=== PATIENT | female | born 1995 | race African-American/Black ===

== ENCOUNTER 2017-07-04 14:26 | Emergency (ER) | payer SELFPAY ==
[~2017-07-04] VITALS: Ht 170.2 cm; Wt 57.0 kg
[2017-07-04 15:26] VITALS: BP 103/78
== END 2017-07-04 19:30 | disposition left against medical advice (07) ==
LOC: ER 15:17
DX: Z53.21 Procedure and treatment not carried out due to patient leaving prior to being seen by health care provider (principal)

== ENCOUNTER 2017-07-06 01:54 | Emergency (ER) | payer SELFPAY ==
[~2017-07-06] VITALS: Ht 170.2 cm; Wt 58.0 kg
[2017-07-06 02:20] VITALS: BP 108/75
[2017-07-06] MEDS ORDERED: CEFTRIAXONE SODIUM 250 MG/VIAL IM ONE (05:30)
[2017-07-06] MEDS ORDERED: AZITHROMYCIN 500 MG TABLET PO ONE ×2 (05:30→05:45)
[2017-07-06] MEDS ORDERED: LIDOCAINE HCL 1% 20ML VIAL (Pyxis) INJ MC ONE (05:45)
[2017-07-06 06:32] LABS: CLARITY URINE CLOUDY (CLEAR); COLOR URINE DARK YELLOW (YELLOW); KETONES URINE TRACE (NEGATIVE); LEUKOCYTE ESTERASE URINE 1+ (NEGATIVE); NITRITE URINE NEGATIVE (NEGATIVE); OCCULT BLOOD URINE NEGATIVE (NEGATIVE); PROTEIN URINE TRACE (NEGATIVE); SPECIFIC GRAVITY URINE 1.031 (1.005-1.030)
[2017-07-09 14:25] LABS: CHLAMYDIA TRACHOMATIS NAA Negative (Negative); NEISSERIA GONORRHOEAE NAA Negative (Negative)
== END 2017-07-06 07:01 | disposition home or self-care (01) ==
LOC: ER 01:54
DX: N39.0 Urinary tract infection, site not specified (principal); N76.0 Acute vaginitis; B96.89 Other specified bacterial agents as the cause of diseases classified elsewhere; R03.0 Elevated blood-pressure reading, without diagnosis of hypertension
CPT/HCPCS: 81001; 87210; 87491; 87591; 96372; 99284; J0696; J3490